=== PATIENT | male | born 1945 | race Caucasian/White ===

== ENCOUNTER 2025-03-31 17:01 | Inpatient (IN) | payer MEDICARE, OTHER, SELFPAY ==
[2025-03-30] VITALS (8 sets, daily range): BP systolic 134–159; BP diastolic 56–65; BMI 24.1
--- NOTE | 2025-03-30 16:20 | ED.GENMED ---
History of Present Illness
<ESTIVEN Bernardo - Last Filed: 03/31/25 00:19>
General
Chief Complaint: Abdominal Pain
Source: patient
Exam Limitations: none
Time Seen by Provider: 03/30/25 15:54
Nursing documentation reviewed up to this point in time: agreed with
History of Present Illness
History of Present Illness:
Patient is an 80-year-old male presents to the ER for evaluation of abdominal pain. Patient started with lower abdominal pain associate with lightheadedness around 2:30 PM. Patient reports on Thursday, 3 days ago patient had an endoscopy done at [facility] to removed precancerous lesion on his esophagus. This was performed by Dr. Santana. Since then he has tolerated soft pur�ed foods. He does report he has been constipated and has not moved his bowels in the past 5 days. He
denies any associated nausea vo vomiting, fever chills. Will keep him here then for the
Phy Exam
<ESTIVEN Bernardo - Last Filed: 03/31/25 00:19>
General Physical Exam
General Presentation: no apparent distress
General age: appears stated age
General Skin: warm and dry
General Habitus: normal
General Mental: alert
General Hydration: appears well hydrated
Gastrointestinal Exam
Gastrointestinal Exam: non tender and soft
Neurological Exam
Neurological Exam: alert and oriented x3
Musculoskeletal Exam
Musculoskeletal Exam: full ROM
Skin Exam
Skin Exam: normal color and warm/dry
Psychiatric Exam
Psychiatric Exam: normal mood/affect
Course
<ESTIVEN Bernardo - Last Filed: 03/31/25 00:19>
Orders/Labs/Results
Orders:
Orders
03/30/25 16:16
CMP [Comprehensive Metabolic Panel] Urgent
Complete Blood Count/With Diff Urgent
Troponin I Urgent
03/30/25 16:31
CT Abd/pelvis W Iv Cont Urgent
Comment:
Reason For Exam: lower abd pain
03/30/25 18:08
UA Reflex to Culture [Urinalysis Reflex To Culture] Urgent
Date Specimen was Collected: 03/30/25
Time Specimen was Collected: 16:34
Urine Microscopic Reflex Cult Urgent
03/30/25 21:48
0.9% Sodium Chloride 1000 ml [Nss] 1,000 ml IV BOLUS
03/30/25 22:41
Piperacillin/Tazo 3.375 Gram [Zosyn] 3.375 gram in 50 ml IV NOW
Abnormal Lab Results
03/30/25 03/30/25
16:16 18:08
WBC 15.8 H 10^3/uL
(4.8-10.8)
RBC 4.57 L 10^6/uL
(4.70-6.10)
Abs Immat Gran (auto) 0.1 H 10^3/uL
(0-0.05)
Absolute Neuts (auto) 13.6 H 10^3/uL
(1.4-6.5)
Absolute Lymphs (auto) 1.1 L 10^3/uL
(1.2-3.4)
Absolute Monos (auto) 0.9 H 10^3/uL
(0.1-0.6)
Immature Gran % 0.7 H %
(0-0.5)
Neutrophils % 85.6 H %
(42.2-75.2)
Lymphocytes % 6.9 L %
(20.5-51.1)
Sodium 131 L mmol/L
(135-145)
Carbon Dioxide 20 L mmol/L
(22-30)
Glucose 100 H mg/dl
(70-99)
Total Bilirubin 1.5 H mg/dl
(0.2-1.3)
Total Protein 6.1 L g/dl
(6.3-8.2)
Urine Ketones 2+ A
(Negative)
Urine Bacteria (Reflex) Few A
(Negative)
Urine Albumin (Reflex) 2+ A
(Neg - Trace)
03/30/25 16:16
03/30/25 16:16
Vital Signs
Initial and Last Documented VS:
Initial Vital Signs
Temp Pulse Resp BP Pulse Ox
97.5 F 52 18 142/56 97
03/30/25 15:04 03/30/25 15:04 03/30/25 15:04 03/30/25 15:04 03/30/25 15:04
Last Documented Vital Signs
Temp Pulse Resp BP Pulse Ox
97.5 F 52 18 153/59 98
03/30/25 15:04 03/30/25 15:04 03/30/25 15:04 03/30/25 22:00 03/30/25 22:45
Systems Analyst Developer consulted with Physician
Systems Analyst Developer consulted with physician?: Yes
Name of Physician Consulted: Sameera
<Susy Brasher MD - Last Filed: 03/30/25 19:53>
Orders/Labs/Results
Orders:
Orders
03/30/25 16:16
CMP [Comprehensive Metabolic Panel] Urgent
Complete Blood Count/With Diff Urgent
Troponin I Urgent
03/30/25 16:31
CT Abd/pelvis W Iv Cont Urgent
Comment:
Reason For Exam: lower abd pain
03/30/25 18:08
UA Reflex to Culture [Urinalysis Reflex To Culture] Urgent
Date Specimen was Collected: 03/30/25
Time Specimen was Collected: 16:34
Urine Microscopic Reflex Cult Urgent
03/30/25 21:48
0.9% Sodium Chloride 1000 ml [Nss] 1,000 ml IV BOLUS
03/30/25 22:41
Piperacillin/Tazo 3.375 Gram [Zosyn] 3.375 gram in 50 ml IV NOW
Abnormal Lab Results
03/30/25 03/30/25
16:16 18:08
WBC 15.8 H 10^3/uL
(4.8-10.8)
RBC 4.57 L 10^6/uL
(4.70-6.10)
Abs Immat Gran (auto) 0.1 H 10^3/uL
(0-0.05)
Absolute Neuts (auto) 13.6 H 10^3/uL
(1.4-6.5)
Absolute Lymphs (auto) 1.1 L 10^3/uL
(1.2-3.4)
Absolute Monos (auto) 0.9 H 10^3/uL
(0.1-0.6)
Immature Gran % 0.7 H %
(0-0.5)
Neutrophils % 85.6 H %
(42.2-75.2)
Lymphocytes % 6.9 L %
(20.5-51.1)
Sodium 131 L mmol/L
(135-145)
Carbon Dioxide 20 L mmol/L
(22-30)
Glucose 100 H mg/dl
(70-99)
Total Bilirubin 1.5 H mg/dl
(0.2-1.3)
Total Protein 6.1 L g/dl
(6.3-8.2)
Urine Ketones 2+ A
(Negative)
Urine Bacteria (Reflex) Few A
(Negative)
Urine Albumin (Reflex) 2+ A
(Neg - Trace)
03/30/25 16:16
03/30/25 16:16
Vital Signs
Initial and Last Documented VS:
Initial Vital Signs
Temp Pulse Resp BP Pulse Ox
97.5 F 52 18 142/56 97
03/30/25 15:04 03/30/25 15:04 03/30/25 15:04 03/30/25 15:04 03/30/25 15:04
Last Documented Vital Signs
Temp Pulse Resp BP Pulse Ox
97.5 F 52 18 153/59 98
03/30/25 15:04 03/30/25 15:04 03/30/25 15:04 03/30/25 22:00 03/30/25 22:45
<ESTIVEN Bernardo - Last Filed: 03/31/25 00:19>
MDM/Problems Addressed
Differential Diagnosis Includes:
not limited to: Constipation bowel obstruction, diverticulitis
MDM/Problems Addressed:
As documented patient is an 80-year-old male who had endoscopic submucosal dissection of a distal esophageal nodule on Thursday several days ago at [place]. He has had soft pur�ed foods and has tolerated that well. He presented today for lower
abdominal pain associate with lightheadedness. Patient denies any fevers and is afebrile. He however has an elevated count of 15.8 normal chemistries. Patient's CAT scan however showed possible localized perforation with no collection or abscess.
In addition findings were consistent with possible colitis.
Patient however presented well-appearing and reports symptoms have improved drastically and he is very comfortable. Stable vital signs afebrile
Case discussed with ED physician.
Case d/c with DR Syed air transportation provider GI at [facility]. I did review the ct findings and it is possible that this finding of possible microperf may be related to the lesion that they removed. She reports they did an ESD Endoscopic submucosal dissection
and removed a 2.5 by a 2.5 cm area to remove pt's 8 mm lesion.
With the CT findings and pt's elevated wbc she does recommend a swallowing esophagram under fluoroscopy along with IV antibx , zosyn.
8500: DR Santana called (she did the procedure) she does feel that these findings are from the the procedure that was done. As a precaution she would recommend esophagram under fluoroscopy. She does not feel the patient's symptoms have anything to
do with this and that his lower abdominal pain/findings of colitis on CAT scan would warrant admission she also does recommend Zosyn for this.
<ESTIVEN Bernardo - Last Filed: 03/31/25 00:19>
*Radiology
Radiology exam reviewed: radiology read reviewed
*Pulse Oximetry
SaO2: 97
Oxygen Mode of Delivery: Room air
Patient hypoxic: no
*Critical Care Note
Total Time (30-74mins, 75-104mins- exclusive of procedures): Not Applicable
ED Attending Note
<ESTIVEN Bernardo - Last Filed: 03/31/25 00:19>
-
Portions of this chart may have been created with voice recognition software.� Occasional wrong word or��sound alike� substitutions may have occurred due to the inherent limitations of voice recognition software.
<Susy Brasher MD - Last Filed: 03/30/25 19:53>
ED Attending Note
Patient seen and examined by attending physician: Yes
I performed the substantive portion of visit, reviewed & personally made and approve the management plan that is documented in note by myself or DENITA.: Yes
ED Attending Note:
Patient appears well and comfortable. He is smiling and laughing. He denies any pain. Abdomen is completely soft and nontender. He reports occasionally when he eats, he does get some throat discomfort but other than that he denies any chest or
upper abdominal pain at this time
Discharge Plan
Departure
Patient Disposition: Admit
Date of Disposition: 03/30/25
Time of Disposition: 23:08
Admit to: Med/Surg
Admit to doctor: hospitalist
Presentation/result/management discussed w/ accepting MD/DO: Hospitalist
Patient with high blood pressure during this ER visit?: Yes
Condition: Fair
Covid-19: Not Applicable
Discharge Problem:
Abdominal pain, Leukocytosis
Referrals:
Susy Azevedo CRNP [Family Provider, Family Practice]
Interventions
Interventions:
*General Assessment Last Done: 03/30/25 15:04
*Neglect/Abuse Screening Last Done: 03/30/25 15:04
*ED COVID-19 Vaccine History Last Done: 03/30/25 16:06
*ED Influenza Vaccine History Last Done: 03/30/25 16:06
[facility] Fall Risk Assessment Tool Last Done: 03/30/25 16:06
EX-Xswrnp-Ddoewyllku Assessment Last Done: 03/30/25 16:06
Discharge Date and Time
Print Language: URDU
[2025-03-30 16:26] LABS: Hematocrit 40.2 % (39.0-52.0); Hemoglobin 14.0 g/dL (13.0-18.0); Mean Corp Hgb Conc. 34.8 g/dL (33.0-37.0); Mean Corpuscular Volume 88.0 fL (80.0-94.0); Nucleated Red Blood Cells % 0 % (-); Platelet Count 268 10^3/uL (130-400); Red Cell Dist. Width 13.2 % (11.5-14.5)
[2025-03-30 16:44] LABS: ALT (SGPT) 28 U/L (0-50); AST (SGOT) 29 U/L (17-59); Albumin 3.5 g/dl (3.5-5.0); Alkaline Phosphatase 72 U/L (38-126); Blood Urea Nitrogen 18 mg/dl (9-20); Calcium 8.4 mg/dl (8.4-10.2); Carbon Dioxide 20 mmol/L (22-30); Chloride 104 mmol/L (98-107); Estimated Creatinine Clearance 63 ml/min; Glucose 100 mg/dl (70-99); Potassium 3.9 mmol/L (3.5-5.1); Sodium 131 mmol/L (135-145); Total Protein 6.1 g/dl (6.3-8.2); eGFR > 60.00
[2025-03-30 16:49] LABS: Troponin I 0.012 ng/ml
[2025-03-30 19:41] LABS: Urine Character Clear (Clear)
[2025-03-30 20:08] LABS: Urine Red Blood Cell 0-2 /HPF (0-2); Urine Squamous Cell 0-2 /LPF (Few); Urine Urothelial Cell 0-2 /LPF (FEW); Urine White Cell 0-2 /HPF (0-5)
[2025-03-30] MEDS: NSS 1000 IV (21:54)
[2025-03-30] MEDS: ZOSYN 50 IV (22:46)
[2025-03-31] VITALS (8 sets, daily range): BP systolic 131–189; BP diastolic 57–80; PULSE 57–76; BMI 24.6
--- NOTE | 2025-03-31 01:20 | HPS.HSE ---
Family Physician
-
Family Physician: ESTIVEN Babin
Chief Complaint
-
Abd Pain
History of Present Illness
Patient is an 80y M with PMH significant for hypertension and BPH who presents to ED complaining of lower abdominal pain. Patient notes that he underwent EGD with removal of mucosal lesion on Tuesday 03/27 at [place] with Dr. Santana. He
tolerated this procedure well and has been eating, drinking, etc with no issues since that time. He states that today he developed a crampy, lower abdominal discomfort around 1:30 PM. He felt as if he needed to move his bowels. He went to the
bathroom with no results. The pain resolved, but recurred a short time later. He again attempted to move his bowels. This time he developed a lightheaded sensation and still did not have a bowel movement. He presented to the ED for further
evaluation.
He did not lose consciousness / pass out. He denies any upper abdominal pain, nausea, emesis, etc.
He denies any urinary complaints.
Medical History
Past Medical History
Past Medical History: Reports Other
Additional Past Medical History:
Hypertension
BPH
GERD / Choi's Esophagus
Colon Polyps
SSS
ASCVD
Skin Cancer
Past Surgical History: Reports Other
Additional Past Surgical History:
EGD with Excisional Biopsy (03/27/25)
PPM Placement
Hernia Repair
PCI (no stents)
Skin Cancer Excision
Social History
Tobacco: Former Smoker (Quit smoking 30 years ago.)
Alcohol: Occasional
Drug: None
Family History
Family History: Not pertinent
Allergies / Home Medications
Allergies reflects when Allergies were last updated in [employer].
Home Medications with original date entered in [employer]
Allergy/Medication List:
Allergies
Allergy/AdvReac Type Severity Reaction Status Date / Time
No Known Allergies Allergy Unverified 03/30/25 15:04
Home Medications
amlodipine 10 mg tablet 10 mg PO DAILY 03/31/25
ascorbic acid (vitamin C) 500 mg tablet (Vitamin C) 500 mg PO DAILY 03/31/25
aspirin 81 mg chewable tablet 81 mg PO DAILY 03/31/25
cholecalciferol (vitamin D3) 50 mcg (2,000 unit) tablet 50 mcg PO DAILY 03/31/25
finasteride 5 mg tablet 5 mg PO DAILY 03/31/25
losartan 100 mg tablet 100 mg PO DAILY 03/31/25
omeprazole 20 mg capsule,delayed release 20 mg PO BID 03/31/25
pravastatin 40 mg tablet 40 mg PO DAILY 03/31/25
sucralfate 100 mg/mL oral suspension 1,000 mg PO QID 03/31/25
tamsulosin 0.4 mg capsule 0.4 mg PO DAILY 03/31/25
Review of Systems
-
History Source: Patient
A 12 point ROS was completed and negative except as noted: Yes
Constitutional: Reports Fatigue; Denies Fever or Chills
Respiratory: Denies Cough or Trouble Breathing
Cardiac: Denies Chest Pain or Palpitations
Abdomen/GI: Reports Abdominal Pain and Constipated; Denies Nausea, Vomiting, Diarrhea, Bloody Stools, Black Stools or Anorexia
: Denies Dysuria, Frequency or Flank Pain
Musculoskeletal: Denies Joint Pain or Edema
Neurological: Reports Dizzy; Denies Headache
Psych: Denies Depression or Anxiety
Physical Exam
Vital Signs
Vital Signs
Temp Pulse Resp BP Pulse Ox
97.5 F 52 18 175/77 97
03/30/25 15:04 03/30/25 15:04 03/30/25 15:04 03/31/25 01:00 03/31/25 01:00
Physical Exam
General: Other (80y M in no distress.)
HEENT: Moist mucous membranes and PERRLA
Respiratory: Clear; No Wheezes, Rales or Rhonchi
Cardiac: S1/S2 and Regular Rhythm; No Murmur
GI: Soft, Non Distended, Normal Bowel Sounds and Other (Minimal suprapubic / lower abdominal tenderness without rebound / guarding. Pos BS.)
Musculoskeletal: No Clubbing, No Cyanosis and No Edema
Neuro: AO x 3
Laboratory Results
-
03/30/25 16:16
03/30/25 16:16
Laboratory Results
Total Bilirubin 1.5 mg/dl (0.2-1.3) H 03/30/25 16:16
AST 29 U/L (17-59) 03/30/25 16:16
ALT 28 U/L (0-50) 03/30/25 16:16
Alkaline Phosphatase 72 U/L (38-126) 03/30/25 16:16
Troponin I 0.012 ng/ml 03/30/25 16:16
Impression/Plan
-
A/P: Patient is an 80y M with PMH significant for hypertension, BPH and EGD with lesion removal on 03/27 who presents to ED complaining of lower abdominal pain.
Lower Abdominal Pain
- Observe overnight for further evaluation and treatment.
- CT scan done in the ED with few abnormalities (see below) but none that explain presenting symptoms.
- Patient with intermittent, mild lower abdominal / suprapubic discomfort.
- ? urinary retention and would follow bladder scan to see if any evidence of this.
- Straight cath +/- Resendiz if needed.
- Follow for any new / worsening symptoms, fevers, etc.
- CT findings potentially c/w colitis are collapsed sections of the transverse and descending colon. Not very c/w area of his pain and no associated diarrhea, etc.
- Will continue with Zosyn for now - but low threshold to discontinue.
s/p EGD with Biopsy
GERD / Choi's
Abnormal CT
- Air noted in distal esophagus with localized thickening, etc likely represents expected post-op changes after procedure on 03/27/25.
- GI at [facility] discussed with ED staff and recommended esophagram for completeness.
- Continue sucralfate + PPI.
- No upper GI symptoms, epigastric pain, nausea, etc.
Liver Lesion
- CT also shows lobulated mass at inferior edge of liver (4.4 x 3.8 x 2.6).
- Unclear etiology / acuity.
- Obtain prior imaging for comparison.
BPH
- Continue finasteride and tamsulosin.
- Bladder scan protocol as noted above / cath if necessary.
ASCVD
Benign Hypertension
SSS s/p PPM
- Stable. Continue usual med regimen with holding parameters.
DVT Prophylaxis: SCDs
Code Status: Full
[2025-03-31] MEDS: LR 1000 IV ×2 (03:33→22:09)
[2025-03-31] MEDS: ZOSYN 50 IV ×4 (03:34→21:04)
--- NOTE | 2025-03-31 03:50 | PTCARENOTE ---
Pt received from ED. Alert and orientexdx3, bed alarm in place, call salazar within reach.
--- NOTE | 2025-03-31 06:15 | W.PN.UPDATE ---
Update Note
Progress Note Update
0600 RN reports PT have mod amt liquid bloody stool. BP WNL. PT asymptomatic. Previous HH at 14. Not on blood thinners.
Asked nurse to obtain morning labs. Added type and screen. Consult placed for GI eval.
[2025-03-31 06:32] LABS: Hematocrit 43.5 % (39.0-52.0); Hemoglobin 14.9 g/dL (13.0-18.0); Mean Corp Hgb Conc. 34.3 g/dL (33.0-37.0); Mean Corpuscular Volume 89.5 fL (80.0-94.0); Platelet Count 256 10^3/uL (130-400); Red Cell Dist. Width 13.2 % (11.5-14.5)
[2025-03-31 06:55] LABS: Blood Urea Nitrogen 11 mg/dl (9-20); Calcium 9.0 mg/dl (8.4-10.2); Carbon Dioxide 23 mmol/L (22-30); Chloride 107 mmol/L (98-107); Estimated Creatinine Clearance 71 ml/min; Glucose 99 mg/dl (70-99); Potassium 4.4 mmol/L (3.5-5.1); Sodium 137 mmol/L (135-145); eGFR > 60.00
[2025-03-31] MEDS: CARAFATE SUSPENSION 1 GM PO ×3 (08:06→21:04)
[2025-03-31] MEDS: COZAAR 100 MG PO (08:06)
[2025-03-31] MEDS: PROTONIX 40 MG PO (08:06)
[2025-03-31] MEDS: FLOMAX 0.4 MG PO (08:07)
[2025-03-31] MEDS: PRAVACHOL 40 MG PO (08:07)
[2025-03-31] MEDS: PROSCAR 5 MG PO (08:07)
[2025-03-31] MEDS: NORVASC 10 MG PO (08:07)
--- NOTE | 2025-03-31 10:35 | CM ---
CM met with madhuri at bedside. IA completed. Patient is being treated for lower abdominal pain. he lives alone in a 2 story house. 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 He has 4
supportive children living in the area. He denies any concerns about returning home upon d/c. One of his children will provide transport home. Patient is under Observation status. OWENS given.
PCP: Dr. Susy Art
Pharmacy: [facility]
Plan: home, no needs
--- NOTE | 2025-03-31 14:27 | W.PN.UPDATE ---
Update Note
Progress Note Update
Seen and admitted by Dr Funk this am
Admitted for acute onset abdo pain with CT A/P ? mild bowel wall thickening of transverse and descending colon..
Then he had bloody bowel movements last night making colitis as possible cause.
BP stable .HH stable.
CW NPO till GI eval. Follow HH. CW Zosyn.
--- NOTE | 2025-03-31 15:15 | CON.GI ---
Consultation
-
Date/Time Consultation Requested: 03/31/2025
Date/Time Consultation Performed: 03/31/2025
Requesting Provider: Hospitalist
Performing Provider: Barbara WALSH
Reason for Consultation: abdominal pain
Medical History
Chief Complaint / HPI
Chief Complaint: abdominal pain
History of Present Illness:
80-year-old male with below mentioned past medical history admitted to ED with lower abdominal pain for 1 day. He claims when he started experiencing lower abdominal pain he was trying to have a bowel movement but no stool came out. He was feeling
dizzy at that time so he decided to come to ED for further evaluation.
Patient had EGD/colonoscopy at [facility] few months back and was referred to [facility] for repeat EGD with removal of suspicious lesion in the esophagus. No official records available to review. Patient underwent EGD with removal of mucosal
lesion at [facility] with Dr. Doherty's 03/27/2025. Patient claims since procedure he has been doing well. Denies any difficulty swallowing or nausea or vomiting.
Patient was told during colonoscopy he had multiple polyps but could not one large polyp/ complete examination since he was medically unstable during procedure. Again no official records available to review
This a.m. denies any abdominal pain. When he tried to have bowel movement he noticed some blood with some loose stools.
Past Medical History
Past Medical History: Other (Hypertension BPH GERD / Choi's Esophagus Colon Polyps SSS ASCVD Skin Cancer)
Past Surgical History: Other (EGD with Excisional Biopsy (03/27/25) PPM Placement Hernia Repair PCI (no stents) Skin Cancer Excision)
Social History
Tobacco: Former Smoker
Alcohol: Occasional
Drug: None
Allergies / Home Medications
Allergy/AdvReac Type Severity Reaction Status Date / Time
No Known Allergies Allergy Unverified 03/30/25 15:04
�Medication �Instructions �Recorded
amlodipine 10 mg tablet 10 mg PO DAILY 03/31/25
ascorbic acid (vitamin C) 500 mg 500 mg PO DAILY 03/31/25
tablet (Vitamin C)
aspirin 81 mg chewable tablet 81 mg PO DAILY 03/31/25
cholecalciferol (vitamin D3) 50 50 mcg PO DAILY 03/31/25
mcg (2,000 unit) tablet
finasteride 5 mg tablet 5 mg PO DAILY 03/31/25
losartan 100 mg tablet 100 mg PO DAILY 03/31/25
omeprazole 20 mg capsule,delayed 20 mg PO BID 03/31/25
release
pravastatin 40 mg tablet 40 mg PO DAILY 03/31/25
sucralfate 100 mg/mL oral 1,000 mg PO QID 03/31/25
suspension
tamsulosin 0.4 mg capsule 0.4 mg PO DAILY 03/31/25
Review of Systems
Vital Signs
Temp Pulse Resp BP Pulse Ox
97.5 F 60 18 131/63 94
03/31/25 14:50 03/31/25 14:50 03/31/25 14:50 03/31/25 14:50 03/31/25 14:50
Physical Exam
Exam
General: No Apparent Distress
Respiratory: Clear
Cardiac: S1/S2
GI: Soft, Non Tender and Non Distended
Neuro: AO x 3
Results
WBC 11.8 10^3/uL (4.8-10.8) H 03/31/25 06:26
Hgb 14.9 g/dL (13.0-18.0) 03/31/25 06:26
Hct 43.5 % (39.0-52.0) 03/31/25 06:26
MCV 89.5 fL (80.0-94.0) 03/31/25 06:26
Plt Count 256 10^3/uL (130-400) 03/31/25 06:26
Absolute Neuts (auto) 13.6 10^3/uL (1.4-6.5) H 03/30/25 16:16
Sodium 137 mmol/L (135-145) 03/31/25 06:26
Potassium 4.4 mmol/L (3.5-5.1) 03/31/25 06:
Chloride 107 mmol/L (98-107) 03/31/25 06:26
Carbon Dioxide 23 mmol/L (22-30) 03/31/25 06:26
BUN 11 mg/dl (9-20) 03/31/25 06:26
Creatinine 0.8 mg/dL (0.7-1.3) 03/31/25 06:
Calcium 9.0 mg/dl (8.4-10.2) 03/31/25 06:
Total Bilirubin 1.5 mg/dl (0.2-1.3) H 03/30/25 16:16
AST 29 U/L (17-59) 03/30/25 16:16
ALT 28 U/L (0-50) 03/30/25 16:16
Alkaline Phosphatase 72 U/L (38-126) 03/30/25 16:16
Diagnostic Image Results:
CT abd/pel 03/30/2025
IMPRESSION:
Mild circumferential wall thickening of the distal esophagus with findings suspicious for localized microperforation. No focal collection or abscess.
There is a mass at the inferior liver margin may be adjacent to or contiguous with the liver versus exophytic arising from the liver. Uncertain etiology. Possible benign or malignant mass or serosal mass/implant and. Direct comparison with any prior
examination advised (not available at this facility).
Prominent second segment duodenal diverticulum filled with gas measuring 6 cm craniocaudal. Mild to moderate diverticulosis of the sigmoid colon. Mild diverticulosis of the descending colon. No evidence of acute diverticulitis. No evidence of bowel
obstruction. Relative collapse of the transverse colon and descending colon, which lowers sensitivity for assessment of bowel wall thickness; there may be mild bowel wall thickening of the transverse colon and descending colon, raising the
possibility of nonspecific colitis in the proper clinical setting.
Barium esophagram 03/31/2025
FINDINGS/IMPRESSION:
With specific attention to the distal esophagus, no fluoroscopic evidence for a contrast leak within the limitations of patient positioning.
Prior GI Procedures:
EGD: Recent EGD with removal of mucosal lesion in the esophagus at [facility]�no records available
Colonoscopy: 2024 -at outside facility. No records available. Multiple colon polyps. Incomplete examination due to medical instability
Assessment / Plan
-
80-year-old male with history of hypertension, BPH, polyp, Choi's esophagus admitted to ED with lower abdominal pain/dizziness. Patient underwent EGD with removal of mucosal lesion in the esophagus 03/27/2025 at [facility] with Dr. Santana -no
records available. Patient also underwent colonoscopy few months back at [facility] and was noted to have multiple colon polyps (as the patient incomplete examination due to medical instability. He requires repeat colonoscopy to remove another
colonic polyp-no records available).
Patient had an episode of rectal bleeding with some loose stools this a.m. CT abdomen performed yesterday showing possible wall thickening in the transverse/descending colon ? colitis
-- Lower abdominal pain /episode of hematochezia/CT imaging possible colitis . Hb this a.m. normal. Leukocytosis improving. Denies any abdominal pain this a.m. possible differential�infectious colitis versus ischemic colitis etc.
-- History of esophageal lesion s/p EGD with likely EMR at [facility] 03/25/2025. Recent CT showing mild circumferential wall thickening in the distal esophagus with tiny foci of gas suspicion for localized microperforation. Case was discussed by
ED with [facility], GI-expected postop changes with procedure. Recommended to have barium esophagram�done today. No leakage. Denies any upper GI symptoms
-- Liver lesion noted in CT abdomen. No prior imaging available to compare
plan
Okay to start on full liquid diet
Continue antibiotic started by medical team for now
Recommend stool studies for infection if patient continues to have diarrhea
Would recommend obtaining prior EGD/colonoscopy/previous imaging records
If no prior imaging available will order MRI abdomen for further evaluation
Total Time Spent with Patient (in minutes): 55
-
-
Thank you for consultation and allowing me to participate in the patient's care. Please call the investor relations analyst GI physician during the after hours with any questions or concerns.
[2025-03-31] MEDS: LR IV (16:35)
[2025-03-31] MEDS: CARAFATE SUSPENSION PO (17:13)
--- NOTE | 2025-03-31 18:13 | PTCARENOTE ---
Pt still having liquid stool. Stool was red this morning but now brown. Pt denies abd pain. Pt aox3, pleasant, joking w/ staff. Pt placed on full liquid diet - ate 100% dinner tray w/o issue.
[2025-04-01 03:10] VITALS: BP 138/61
[2025-04-01] MEDS: ZOSYN 50 IV ×2 (03:35→10:47)
[2025-04-01 05:18] VITALS: BMI 24.6
[2025-04-01 07:43] VITALS: BP 149/70
[2025-04-01 07:54] VITALS: BP 148/63; BP 148/66; BP 149/70; PULSE 54; PULSE 55; PULSE 59
[2025-04-01] MEDS: PRAVACHOL 40 MG PO (08:15)
[2025-04-01] MEDS: CARAFATE SUSPENSION 1 GM PO ×2 (08:15→13:07)
[2025-04-01] MEDS: PROSCAR 5 MG PO (08:19)
[2025-04-01] MEDS: PROTONIX 40 MG PO (08:19)
[2025-04-01] MEDS: FLOMAX 0.4 MG PO (08:19)
[2025-04-01] MEDS: COZAAR 100 MG PO (08:19)
[2025-04-01] MEDS: NORVASC 10 MG PO (08:19)
[2025-04-01] MEDS: LR 1000 IV (09:38)
[2025-04-01 11:00] VITALS: BP 149/56
--- NOTE | 2025-04-01 12:45 | W.PN.GI.CBS2 ---
Today's Communication / Plan
-
Low residual diet
Follow-up with his outpatient GI at [facility]/[place]/[facility]
Assessment / Plan
-
80-year-old male with history of hypertension, BPH, polyp, Choi's esophagus admitted to ED with lower abdominal pain/dizziness. Patient underwent EGD with removal of mucosal lesion in the esophagus 03/27/[address] at [place] [address] Santana -no
records available. Patient also underwent colonoscopy few months back at [facility] and was noted to have multiple colon polyps (as the patient incomplete examination due to medical instability. He requires repeat colonoscopy to remove another
colonic polyp-no records available).
Patient had an episode of rectal bleeding with some loose stools this a.m. CT abdomen performed yesterday showing possible wall thickening in the transverse/descending colon ? colitis
-- Lower abdominal pain /episode of hematochezia/CT imaging possible colitis . Hb this a.m. normal. Leukocytosis improving. Denies any abdominal pain this a.m. possible differential�infectious colitis versus ischemic colitis etc.
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 Recent CT showing mild circumferential wall thickening in the distal esophagus with tiny foci of gas suspicion for localized microperforation. Case was discussed by
ED with [place], GI-expected postop changes with procedure. Recommended to have barium esophagram�done today. No leakage. Denies any upper GI symptoms
-- Liver lesion noted in CT abdomen. No prior imaging available to compare
plan
Denies any abdominal pain this a.m. No further rectal bleeding.
Stool studies pending
antibiotics as per medical team
Okay to advance to low residual diet. If tolerating diet okay to DC and follow-up with his GI doctor at [facility]
Patient claims he follows up with project administrator at [facility] for his liver lesion for the last few years. He claims he has a liver cyst. He had multiple imaging and also had drainage in the past. he gets imaging now q 6 months . no records
available . Will advised to continue follow-up with hepatology at [facility].
No further recommendation at this point. Will sign off
Total Time Spent with Patient (in minutes): 35
Subjective
Subjective
Date of Service: April 01, 2025
Denies any abdominal pain. Tolerating liquid diet. Liquid stool this a.m. without any bleeding
Objective
Data Reviewed
Laboratory Data:
Laboratory Results
03/31/25 06:26
03/31/25 06:26
Laboratory Results
Total Bilirubin 1.5 mg/dl (0.2-1.3) H 03/30/25 16:16
AST 29 U/L (17-59) 03/30/25 16:16
ALT 28 U/L (0-50) 03/30/25 16:16
Alkaline Phosphatase 72 U/L (38-126) 03/30/25 16:16
Vital Signs and I&O:
Vital Signs
Temp Pulse Resp BP Pulse Ox
97.8 F 53 16 149/56 96
04/01/25 11:00 04/01/25 11:00 04/01/25 11:00 04/01/25 11:00 04/01/25 11:00
I&O
03/31/25 04/01/25 04/02/25
06:59 06:59 06:59
Intake Total 470 / 470 1900 / 1900
Output Total 350 / 350 400 / 400
Balance 120 / 120 1500 / 1500
Physical Exam
Physical Exam
GI: Soft, Non Distended and Non Tender
--- NOTE | 2025-04-01 14:32 | W.DCSUMMARY ---
Discharge Summary
Discharge Data
Date of Admission: 03/31/25
Date of Discharge: 04/01/25
-
Pending Results: No
Hospital Course
Primary diagnosis:
Colitis-infectious versus ischemic
Secondary diagnosis:
Essential hypertension
Benign prostatic hyperplasia
Choi's esophagus
Hospital course:
Patient presented with lower abdominal pain and dizziness. He recently underwent EGD with removal of mucosal lesion and esophagus on 03/27/2025 at [place]. He also apparently underwent colonoscopy few months back at [facility] was
noted to have multiple colonic polyps and he needed repeat colonoscopy to remove another colonic polyp. No records available on this. After admission to the hospital he had an episode of rectal bleeding with some loose stools. CT of the abdomen
pelvis showed possible wall thickening in the transverse/descending colon raising concern for colitis.
With lower abdominal pain, episode of hematochezia and the CT findings possibly colitis infectious versus ischemic. He had no further episodes of hematochezia. He was put on empirical antibiotics. He had resolution of abdominal pain.
Leukocytosis of 15.8 which improved 11.8 on discharge. Hemoglobin was stable in 14's. Was seen by GI.
Diet was gradually advanced and he was tolerating a low residue diet without GI symptoms. He was discharged home on Augmentin to complete a 10-day total course of antibiotics.
Since he had recent esophageal lesion resected he had upper GI series which did not show any leakage.
Today he is without any abdominal pain nor any rectal bleeding. Afebrile. Pulse was 53. Blood pressure 149/56. Abdomen soft without tenderness. Chest was clear. White count was 11.8. Hemoglobin 14.9.
Discussed with GI today in the rounds.
Medically stable for discharge home today. Patient was advised to follow-up with primary GI upon discharge.
Consultants on board:
GI-Markie Quinonez
Discharge Plan
-
Patient Disposition: Home (Routine Discharge)
Discharge Diagnosis/Procedures: Colitis
Diet: Low Residue
Additional Diets: low residue diet for a week and resume regular diet
Activity: As tolerated
Driving Restrictions: As prior to admission
Bathing Restrictions: None
Activity Restrictions/Additional Instructions:
Follow with your primary GI as planned before
Referrals:
Susy Azevedo CRNP [Family Provider, [facility]] - in less than 1 week
Prescriptions:
New
amoxicillin-pot clavulanate 875-125 mg tablet
1 tab PO BID Qty: 20 0RF
Continued
pravastatin 40 mg Tablet
40 mg PO DAILY
sucralfate 100 mg/mL suspension
1,000 mg PO QID
ascorbic acid (vitamin C) [Vitamin C] 500 mg Tablet
500 mg PO DAILY
tamsulosin 0.4 mg Capsule
0.4 mg PO DAILY
amlodipine 10 mg Tablet
10 mg PO DAILY
omeprazole 20 mg capsule,delayed release(DR/EC)
20 mg PO BID
aspirin 81 mg Tablet,Chewable
81 mg PO DAILY
losartan 100 mg Tablet
100 mg PO DAILY
finasteride 5 mg Tablet
5 mg PO DAILY
cholecalciferol (vitamin D3) 50 mcg (2,000 unit) Tablet
50 mcg PO DAILY
Discharge Orders:
Discharge Patient (As Directed); Ordered 04/01/25
Ordered By: Chip Braden
Discharge Date and Time
Print Language: STATELESS
--- NOTE | 2025-04-01 14:49 | CM ---
Discharge home today, no needs
IMM verbally reviewed w/ patient, copy provided, copy on chart
--- NOTE | 2025-04-01 15:12 | PTCARENOTE ---
patient tolerated diet, no nausea or vomiting. Patient denies any bloody stools at this time. MD Braden notified. Preparing for d/c
[2025-04-01 15:15] VITALS: BP 140/59
== END 2025-04-01 16:50 | disposition home or self-care (01) | DRG 394 ==
LOC: 4 WEST ACU 17:01
PROVIDERS: Nurse Practitioner; ADMITTING PHYSICIAN Hospitalist; ATTENDING PHYSICIAN Internal Medicine; EMERGENCY PHYSICIAN Emergency Medicine; FAMILY PHYSICIAN Nurse Practitioner Family; OTHER PHYSICIAN Internal Medicine Gastroenterology
DX: K55.9 Vascular disorder of intestine, unspecified (principal); A09 Infectious gastroenteritis and colitis, unspecified; K92.1 Melena; I10 Essential (primary) hypertension; I25.10 Atherosclerotic heart disease of native coronary artery without angina pectoris; N40.0 Benign prostatic hyperplasia without lower urinary tract symptoms; D72.829 Elevated white blood cell count, unspecified; K21.9 Gastro-esophageal reflux disease without esophagitis; K22.70 Barrett's esophagus without dysplasia; I49.5 Sick sinus syndrome; K57.10 Diverticulosis of small intestine without perforation or abscess without bleeding; K57.30 Diverticulosis of large intestine without perforation or abscess without bleeding; K76.9 Liver disease, unspecified; Z79.82 Long term (current) use of aspirin; Z79.899 Other long term (current) drug therapy; Z87.891 Personal history of nicotine dependence; Z95.0 Presence of cardiac pacemaker
CPT/HCPCS: 74177; 74221; 80048; 80053; 81003; 81015; 84484; 85025; 85027; 86850; 86900; 86901; 87045; 87046; 87427; 96361; 96365; 99285; Q9967